=== PATIENT | male | born 1965 | race American Indian/Alaskan Native ===

== ENCOUNTER 2016-11-10 10:53 | Emergency (ER) | payer SELFPAY ==
[2016-11-10 11:23] VITALS: BP 146/108
[2016-11-10] MEDS ORDERED: NORCO 5/325 PO ONE (12:15)
--- NOTE | 2016-11-10 12:19 | Emergency Department Report ---
ED ENT HPI - General Chief complaint: Dental/Oral Stated complaint: PAIN IN RIGHT SIDE OF MOUTH Time Seen by Provider: 11/10/16 11:47 Source: patient Mode of arrival: Ambulatory Limitations: No Limitations - History of Present Illness Initial comments: Patient is a 51-year-old male who presents due to dental pain 4 days, patient says that he noticed dental pain 4 days. Patient also complains of right facial swelling with ringing in his ears. Patient has any fever or chills. Patient admits of having history of dental caries. MD complaint: tooth pain Onset/Timin -: days(s) Location: R ear, tooth # (32) Severity: severe Severity scale (0 -10): 10 Quality: aching Consistency: constant Improves with: none Worsens with: eating Context- Dental: history of dental caries Associated Symptoms: toothache, tinnitus, other (headache) - Related Data Previous Rx's Medication Instructions Recorded Last Taken Type Acetaminophen/Codeine [Tylenol #3] 1 tab PO Q6H PRN #15 tab 11/10/16 Unknown Rx Ibuprofen [Motrin 800 MG tab] 800 mg PO Q8HR PRN #30 tablet 11/10/16 Unknown Rx Penicillin Vk [Veetids TAB] 500 mg PO QID #80 tablet 11/10/16 Unknown Rx Allergies Allergy/AdvReac Type Severity Reaction Status Date / Time No Known Allergies Allergy Unverified 11/10/16 11:20 ED Dental HPI - General Chief complaint: Dental/Oral Stated complaint: PAIN IN RIGHT SIDE OF MOUTH Time Seen by Provider: 11/10/16 11:47 Source: patient Mode of arrival: Ambulatory Limitations: No Limitations - Related Data Previous Rx's Medication Instructions Recorded Last Taken Type Acetaminophen/Codeine [Tylenol #3] 1 tab PO Q6H PRN #15 tab 11/10/16 Unknown Rx Ibuprofen [Motrin 800 MG tab] 800 mg PO Q8HR PRN #30 tablet 11/10/16 Unknown Rx Penicillin Vk [Veetids TAB] 500 mg PO QID #80 tablet 11/10/16 Unknown Rx Allergies Allergy/AdvReac Type Severity Reaction Status Date / Time No Known Allergies Allergy Unverified 11/10/16 11:20 ED Review of Systems ROS: Stated complaint: PAIN IN RIGHT SIDE OF MOUTH Other details as noted in HPI Comment: All other systems reviewed and negative Constitutional: no symptoms reported. denies: chills, diaphoresis, fever, malaise, weakness Eyes: denies: eye pain, eye discharge, vision change ENT: dental pain, other (ringing in right ear). denies: ear pain, throat pain, hearing loss, epistaxis, congestion Respiratory: no symptoms reported. denies: cough, orthopnea, shortness of breath, SOB with exertion, SOB at rest, stridor, wheezing Cardiovascular: denies: chest pain, palpitations Endocrine: no symptoms reported Gastrointestinal: denies: abdominal pain, nausea, vomiting, diarrhea, constipation, hematemesis, melena, hematochezia Genitourinary: denies: urgency, dysuria, frequency, hematuria, discharge, testicular pain, testicular mass Musculoskeletal: denies: back pain, joint swelling, arthralgia Skin: denies: rash Neurological: headache ED Past Medical Hx - Past Medical History Hx Hypertension: Yes - Surgical History Past Surgical History?: No - Social History Smoking Status: Current Every Day Smoker Substance Use Type: Alcohol - Medications Home Medications: Home Medications Medication Instructions Recorded Confirmed Last Taken Type Acetaminophen/Codeine [Tylenol #3] 1 tab PO Q6H PRN #15 tab 11/10/16 Unknown Rx Ibuprofen [Motrin 800 MG tab] 800 mg PO Q8HR PRN #30 tablet 11/10/16 Unknown Rx Penicillin Vk [Veetids TAB] 500 mg PO QID #80 tablet 11/10/16 Unknown Rx ED Physical Exam - General Limitations: No Limitations General appearance: alert, in no apparent distress - Head Head exam: Present: atraumatic, normocephalic, normal inspection - Eye Eye exam: Present: normal appearance, PERRL, EOMI Pupils: Present: normal accommodation - ENT ENT exam: Present: mucous membranes moist, TM's normal bilaterally, normal external ear exam - Expanded ENT Exam Expanded Mouth exam: Present: normal external inspection Teeth exam: Present: dental caries, dental tenderness # (32), gingival enlargement 1 - Dental Tenderness Throat exam: Positive: normal inspection - Neck Neck exam: Present: normal inspection, full ROM. Absent: tenderness, meningismus, lymphadenopathy, thyromegaly - Respiratory Respiratory exam: Present: normal lung sounds bilaterally. Absent: respiratory distress, wheezes, rales, rhonchi, stridor - Cardiovascular Cardiovascular Exam: Present: regular rate, normal rhythm - GI/Abdominal GI/Abdominal exam: Present: soft. Absent: distended, tenderness, guarding - Back Exam Back exam: Present: normal inspection - Neurological Exam Neurological exam: Present: alert, oriented X3, normal gait - Psychiatric Psychiatric exam: Present: normal affect, normal mood - Skin Skin exam: Present: warm, dry, intact ED Course Vital Signs 11/10/16 11:20 Temperature 98.5 F Pulse Rate 59 L Respiratory 19 Rate Blood Pressure 146/108 O2 Sat by Pulse 100 Oximetry ED Medical Decision Making - Medical Decision Making Patient was in no acute distress. Patient was discharged with a prescription for penicillin, ibuprofen and Tylenol with codeine. Area of swelling was palpated and was no palpable abscess. Patient was told to follow-up with a dentist. - Differential Diagnosis into caries, dental abscess, gingivitis Critical care attestation.: If time is entered above; I have spent that time in minutes in the direct care of this critically ill patient, excluding procedure time. ED Disposition Clinical Impression: Pain, dental, Dental caries, Right facial swelling Disposition: DISCHARGED TO HOME OR SELFCARE Is pt being admited?: No Does the pt Need Aspirin: No Condition: Good Instructions: Dental Caries (ED) Additional Instructions: Follow up with the provided dental clinics for further evaluation of the accident to pain, take penicillin as prescribed, take ibuprofen 800 mg every 8 hours as needed for pain. Take Tylenol with codeine one tablet every 6 hours as needed for severe pain. Return to the ER for any complications. Prescriptions: Acetaminophen/Codeine [Tylenol #3] 1 tab PO Q6H PRN #15 tab PRN Reason: Pain Ibuprofen [Motrin 800 MG tab] 800 mg PO Q8HR PRN #30 tablet PRN Reason: Pain Penicillin Vk [Veetids TAB] 500 mg PO QID #80 tablet Referrals: PRIMARY CARE, [Primary Care Provider] - 3-5 Days [facility] [Outside] - 3-5 Days [facility] [Outside] - 3-5 Days [facility] [Outside] - 3-5 Days Time of Disposition: 12:25
== END 2016-11-10 12:37 | disposition home or self-care (01) ==
LOC: ED 10:53
DX: K02.9 Dental caries, unspecified (principal); R22.0 Localized swelling, mass and lump, head; I10 Essential (primary) hypertension; F17.200 Nicotine dependence, unspecified, uncomplicated
CPT/HCPCS: 99282

== ENCOUNTER 2018-06-15 17:08 | Emergency (ER) | payer SELFPAY ==
[2018-06-15 18:50] LABS: Hematocrit 45.4 % (35.5-45.6); Hemoglobin 15.2 gm/dl (11.8-15.2); Mean Corpuscular HGB Conc 34 % (32-34); Mean Corpuscular Hemoglobin 30 pg (28-32); Mean Corpuscular Volume 90 fl (84-94); Platelet Count 270 K/mm3 (140-440); Red Blood Count 5.04 M/mm3 (3.65-5.03); Red Cell Distribution Width 14.3 % (13.2-15.2)
[2018-06-15 19:02] LABS: INR 0.96 (0.87-1.13); Partial Thromboplastin Time 27.1 Sec. (24.2-36.6)
[2018-06-15 19:09] LABS: BUN/Creatinine Ratio 5; Blood Urea Nitrogen 6 mg/dL (9-20); Calcium 9.9 mg/dL (8.4-10.2); Hemolysis Index 5
[2018-06-15 20:30] VITALS: BP 169/95
[2018-06-15] MEDS ORDERED: ZOFRAN IM ONE (20:33)
[2018-06-15] MEDS ORDERED: MORPHINE IM ONE (20:33)
--- NOTE | 2018-06-15 20:37 | Emergency Department Report ---
ED General Adult HPI - General Chief complaint: Dyspnea/Respdistress Stated complaint: RIGHT SIDE PAIN Time Seen by Provider: 06/15/18 20:25 Source: patient Mode of arrival: Ambulatory Limitations: No Limitations - History of Present Illness Initial comments: Patient is 52 years old male with no significant positives medical history. Patient presented to the ER complaining of left elbow pain and swelling for the last 3 days. Patient stated that he is unable to use his left elbow because of the pain. Patient denied any fever, nausea vomiting. Patient denied any recent injury but he stated that he is being lifting a lot of heavy stuff at his job. He also complaining of shortness of breath and sweating when this symptom started. - Related Data Previous Rx's Medication Instructions Recorded Last Taken Type Acetaminophen/Codeine [Tylenol #3] 1 tab PO Q6H PRN #15 tab 11/10/16 Unknown Rx Ibuprofen [Motrin 800 MG tab] 800 mg PO Q8HR PRN #30 tablet 11/10/16 Unknown Rx Penicillin Vk [Veetids TAB] 500 mg PO QID #80 tablet 11/10/16 Unknown Rx Allergies Allergy/AdvReac Type Severity Reaction Status Date / Time No Known Allergies Allergy Unverified 11/10/16 11:20 ED Review of Systems ROS: Stated complaint: RIGHT SIDE PAIN Other details as noted in HPI Comment: All other systems reviewed and negative Constitutional: denies: chills, fever ENT: denies: ear pain, throat pain, dental pain, hearing loss Respiratory: shortness of breath (gone). denies: cough, orthopnea, SOB with exertion, SOB at rest, stridor, wheezing Cardiovascular: denies: chest pain, palpitations, dyspnea on exertion Gastrointestinal: denies: abdominal pain, nausea, vomiting, diarrhea, constipation, hematemesis, melena, hematochezia Genitourinary: denies: urgency, dysuria Musculoskeletal: denies: back pain Neurological: denies: headache, weakness, numbness, paresthesias, confusion, abnormal gait, vertigo ED Past Medical Hx - Past Medical History Hx Hypertension: Yes Hx GERD: Yes - Social History Smoking Status: Current Every Day Smoker Substance Use Type: None - Medications Home Medications: Home Medications Medication Instructions Recorded Confirmed Last Taken Type Acetaminophen/Codeine [Tylenol #3] 1 tab PO Q6H PRN #15 tab 11/10/16 Unknown Rx Ibuprofen [Motrin 800 MG tab] 800 mg PO Q8HR PRN #30 tablet 11/10/16 Unknown Rx Penicillin Vk [Veetids TAB] 500 mg PO QID #80 tablet 11/10/16 Unknown Rx ED Physical Exam - General Limitations: No Limitations General appearance: alert, in no apparent distress - Head Head exam: Present: atraumatic, normocephalic, normal inspection - Eye Eye exam: Present: normal appearance, PERRL - ENT ENT exam: Present: normal exam, normal orophraynx, mucous membranes moist - Neck Neck exam: Present: normal inspection, full ROM. Absent: tenderness, meningismus, lymphadenopathy, thyromegaly - Respiratory Respiratory exam: Present: normal lung sounds bilaterally. Absent: respiratory distress, wheezes, rales, rhonchi, stridor, accessory muscle use, decreased breath sounds, prolonged expiratory - Cardiovascular Cardiovascular Exam: Present: regular rate, normal rhythm, normal heart sounds - GI/Abdominal GI/Abdominal exam: Present: soft, normal bowel sounds. Absent: distended, tenderness, guarding, rebound, rigid, organomegaly, mass, bruit, pulsatile mass , hernia - Extremities Exam Extremities exam: Present: normal inspection, full ROM, normal capillary refill. Absent: pedal edema, calf tenderness - Expanded Upper Extremity Exam Left Shoulder Exam: Present: normal inspection, full ROM. Absent: tenderness, swelling, abrasion Upper Arm exam: Present: tenderness, swelling. Absent: full ROM, abrasion, laceration, ecchymosis, deformity, crepidus, dislocation, erythema Forearm Wrist exam: Present: normal inspection, full ROM, tenderness. Absent: swelling, abrasion, laceration, ecchymosis Hand Wrist exam: Present: normal inspection, full ROM - Back Exam Back exam: Present: normal inspection, full ROM. Absent: CVA tenderness (R), CVA tenderness (L), muscle spasm, paraspinal tenderness, vertebral tenderness, rash noted - Neurological Exam Neurological exam: Present: alert, oriented X3, CN II-XII intact, normal gait, reflexes normal - Skin Skin exam: Present: warm, intact, normal color ED Course Vital Signs 06/15/18 06/15/18 17:19 20:29 Temperature 98.7 F 99.2 F Pulse Rate 95 H 69 Respiratory 24 16 Rate Blood Pressure 150/93 Blood Pressure 169/95 [Right] O2 Sat by Pulse 97 100 Oximetry ED Medical Decision Making - Lab Data Result diagrams: 06/15/18 18:22 06/15/18 18:22 - Radiology Data Radiology results: report reviewed Referring Physician: CAL OCASIO Patient Name: PIERO BONE Date of : 1965 Sex: Male Report Date: 2018-06-15 Report Status: Finalized Findings [facility] [address] [place] [address] XRay Report Signed Patient: PIERO BONE MR#: [id number] : 1965 Acct:[id number] Age/Sex: 52 / M ADM Date: 06/15/18 Loc: ED Attending Dr: Ordering Physician: CAL OCASIO Date of Service: 06/15/18 Procedure(s): XR elbow 3+V LT Accession Number(s): [id number] cc: CAL OCASIO Fluoro Time In Minutes: FINAL REPORT PROCEDURE: XR ELBOW 3+V LT TECHNIQUE: LEFT elbow radiographs, including AP and lateral views. HISTORY: left elbow pain and swelling COMPARISON: No prior studies are available for comparison. FINDINGS: Fracture (s) and/or Dislocation(s): No obvious fracture line is noted.. Alignment: Normal . Joint space(s): There is severe degree thickening of anterior fat pad. A large posterior fat pad is also identified.. Soft tissues: Normal . Bone mineralization: Normal . Foreign bodies: None . IMPRESSION: Findings are consistent with moderate to severe degree joint effusion. If there is history of trauma a subtle fracture cannot be excluded. Transcribed By: [facility] Dictated By: MOSHE SMITH Electronically Authenticated By: MOSHE SMITH Signed Date/Time: 06/15/182131 DD/ 31 TD/TT: 06/15/182131 - Medical Decision Making Mr Bone is 52 years old male with no significant past medical history. Patient presented to the ER complaining of left elbow pain and swelling for the last 3 days. Patient stated that he is unable to use his left elbow because of the pain. Patient denied any fever, nausea vomiting. Patient denied any recent injury but he stated that he is being lifting a lot of heavy stuff at his job. He also complaining of shortness of breath and sweating when this symptom started. Patient received morphine for pain. He stated that his pain is much better. Chest x-ray is negative for acute finding. Left elbow x-ray showed a joint effusion and no fracture. I advised patient to follow-up with his primary care physician in the next 2-3 days and to return to the hospital if his symptoms are not improving. Critical care attestation.: If time is entered above; I have spent that time in minutes in the direct care of this critically ill patient, excluding procedure time. ED Disposition Clinical Impression: Effusion of elbow joint, left, Shortness of breath Disposition: - TO HOME OR SELFCARE Is pt being admited?: No Condition: Stable Instructions: Osteoarthritis (ED), Elbow Sprain (ED) Forms: Work/School Release Form(ED)
--- NOTE | 2018-06-15 21:33 | XRay Report ---
FINAL REPORT PROCEDURE: XR ELBOW 3+V LT TECHNIQUE: LEFT elbow radiographs, including AP and lateral views. HISTORY: left elbow pain and swelling COMPARISON: No prior studies are available for comparison. FINDINGS: Fracture (s) and/or Dislocation(s): No obvious fracture line is noted.. Alignment: Normal . Joint space(s): There is severe degree thickening of anterior fat pad. A large posterior fat pad is also identified.. Soft tissues: Normal . Bone mineralization: Normal . Foreign bodies: None . IMPRESSION: Findings are consistent with moderate to severe degree joint effusion. If there is history of trauma a subtle fracture cannot be excluded.
[2018-06-15] MEDS ORDERED: TORADOL IM ONE (23:17)
--- NOTE | 2018-06-16 07:39 | XRay Report ---
FINAL REPORT EXAM: XR CHEST ROUTINE 2V HISTORY: sob/chest pain TECHNIQUE: PA and lateral views of the chest were submitted. FINDINGS: The heart size and vascularity appear normal. The lungs are clear. Pleural fluid is not seen. The skeletal structures do not show any acute changes. IMPRESSION: No acute cardiopulmonary process.
== END 2018-06-15 23:41 | disposition home or self-care (01) ==
LOC: ED 17:08
DX: M25.422 Effusion, left elbow (principal); R06.02 Shortness of breath; I10 Essential (primary) hypertension; K21.9 Gastro-esophageal reflux disease without esophagitis; F17.200 Nicotine dependence, unspecified, uncomplicated
CPT/HCPCS: 36415; 71046; 73080; 80048; 84484; 85027; 85379; 85610; 85730; 93005; 93010; 96372; 99284; J1885; J2270; J2405